=== PATIENT | male | born 1945 | race Caucasian/White ===

== ENCOUNTER 2016-05-09 15:45 | Inpatient (IN) | payer MEDICARE, OTHER ==
[~2016-05-09] VITALS: Ht 172.7 cm; Wt 76.2 kg
[2016-05-09 17:50] VITALS: BP 122/64
[2016-05-09] MEDS ORDERED: ALBU17IN INH (18:30)
[2016-05-09] MEDS ORDERED: AMLO5TAB2 PO (18:30)
[2016-05-09] MEDS ORDERED: OMEP40CA2 PO (18:30)
[2016-05-09] MEDS ORDERED: LISI-542 PO (18:30)
[2016-05-09] MEDS ORDERED: GABA-279 PO (18:30)
[2016-05-09] MEDS ORDERED: MONT10TA2 PO (18:30)
[2016-05-09] MEDS ORDERED: ASPI81TA7 PO (18:30)
[2016-05-09] MEDS ORDERED: ZOSY3INJ2 IV (18:30)
[2016-05-09] MEDS ORDERED: ACETAMINOPHEN TAB 650MG DOSE (2X325MG) PO PRN (19:00)
[2016-05-09] MEDS ORDERED: ONDANSETRON 4MG/2ML VIAL (J2405) IV PRN (19:00)
[2016-05-09] MEDS ORDERED: ALBUTEROL 90 MCG/ACT 8GM HFA INHALER INH PRN (19:15)
[2016-05-09] MEDS ORDERED: LORazepam 2 MG/ML VIAL (J2060) IV STA (19:20)
[2016-05-09 19:31] LABS: MEAN CORPUSCULAR HEMOGLOBIN 28.8 pg (27.0-33.0); MEAN CORPUSCULAR HGB CONC 33.7 g/dl (32.0-36.5); MEAN CORPUSCULAR VOLUME 85.3 fl (80.0-96.0); RED CELL DISTRIBUTION WIDTH 13.4 % (11.5-14.5); WHITE BLOOD COUNT 12.2 K/mm3 (4.0-10.0)
--- NOTE | 2016-05-09 19:34 | HPEPDOC ---
Medical History and Physical Date of Admission May 09, 2016 at 17:45 History and Physical PRIMARY CARE PROVIDER: ATTENDING: Mat Blue MD CHIEF COMPLAINT: Abd pain/N/V HISTORY OF PRESENT ILLNESS: Is a 70-year-old male past medical history of asthma, GERD, history of small bowel obstruction, spinal stenosis, hypertension initially presents to [facility] complaining of nausea/vomiting/abdominal pain. Patient states he started to develop nausea and nonbilious nonbloody vomiting over the past 24 hours. Complained of epigastric pain that was nonradiating. Denied any chest pain/redness of breath/palpitations. No diarrhea. Had a regular bowel movement today. N/V/Abd pain have completely resolved. At [facility], patient was noted to have the WBC of 18, bilirubin of 3.5, AST/ALT/alkaline phosphatase in the 100s, and reported to have a dilation of the common bile duct per the ED physician at [facility]. She was sent here for a formal GI evaluation for choledocholithiasis. PAST MEDICAL HISTORY: As per HPI PAST SURGICAL HISTORY: Hemorrhoidectomy, knee surgery, rotator cuff surgery FAMILY HISTORY: Noncontributory ALLERGIES: Please see below. REVIEW OF SYSTEMS: HEENT: Denies sore throat/headache CARDIOVASCULAR: Denies chest pain/palpitations RESPIRATORY: No shortness of breath/cough GASTROINTESTINAL: + nausea/vomiting GENITOURINARY: Denies dysuria/urinary urgency. MUSCULOSKELETAL: Denies myalgias/arthralgias NEUROLOGICAL: Denies any focal weakness Rest of ROS negative. HOME MEDICATIONS: Please see below. PHYSICAL EXAMINATION: Vitals: (see below) General: No acute distress, laying comfortably in bed. HEENT: Moist mucous membranes. Neck: No JVD or lymphadenopathy Cardiac: RRR, No murmurs Pulm: Clear to auscultation b/l. No wheezing, rhonchi Abd: NT/ND + BS Ext: No edema or cyanosis LABORATORY DATA: See below. IMAGING: CT abdomen and pelvis 05/09/16 from [facility] is being sent to radiology for formal reading. I do not have the readings from [place]. I was told by the ED physician that there was no localized gallstone within the common bile duct although it is dilated. MRCP pending MICROBIOLOGY: Please see below. ASSESSMENT/PLAN: Questionable choledocholithiasis versus cholecystitis- given that the bilirubin is elevated and since, and bile duct was reported to be dilated, will obtain MRCP. Trend LFTs. Gastroenterology consultation. Dr. Figueroa will be evaluating patient tomorrow. Patient was initially hypotensive on presentation to [facility], status post 2 L normal saline currently on maintenance fluids. Continue Zosyn and follow blood cultures. History of hypertension- hold BP meds for now as patient was hypotensive in the 80s at [facility]. Consider restarting when blood pressure stabilizes. GERD- PPI H/o Asthma H/o spinal stenosis GERD - on PPI DVT prophy: SCDs Pt will be followed by Dr. Meyer starting 05/10/16 at 7am. Vital Signs Vital Signs Date Time Temp Pulse Resp B/P Pulse Ox O2 Delivery O2 Flow Rate FiO2 05/09/16 17:50 97.1 74 20 122/64 96 Room Air Home Medications Scheduled Amlodipine Besylate (Amlodipine Besylate) 5 Mg Tab 5 MG PO QHS Aspirin (Aspirin) 81 Mg Tab 81 MG PO QHS Ciprofloxacin HCl (Cipro) 500 Mg Tab 500 MG PO BID Gabapentin (Gabapentin) 100 Mg Cap 100 MG PO QHS Lisinopril (Lisinopril) 5 Mg Tab 5 MG PO QHS Montelukast Sodium (Montelukast Sodium) 10 Mg Tab 10 MG PO QHS Omeprazole (Omeprazole) 40 Mg Cap 40 MG PO DAILY Scheduled PRN Acetaminophen/Hydrocodone ([place] 5-325 mg) 1 Tab Tab 1 TAB PO Q6HP PRN PRN pain Albuterol Sulfate (Ventolin Hfa) 200 Puff/8 Gm Aers 2 PUFF INH QID PRN PRN SHORTNESS OF BREATH Allergies Coded Allergies: No Known Drug Allergy (Verified Allergy, Unknown, 05/09/16) MAT BLEU MD May 09, 2016 19:34
[2016-05-09 19:54] LABS: ALBUMIN 2.9 GM/DL (3.2-5.2); ALBUMIN/GLOBULIN RATIO 1.07 (1.00-1.93); ALKALINE PHOSPHATASE 162 U/L (45-117); ALT/SGPT 121 U/L (12-78); ANION GAP 8 MEQ/L (8-16); AST/SGOT 122 U/L (15-37); BILIRUBIN,TOTAL 3.7 MG/DL (0.2-1.0); BLOOD UREA NITROGEN 15 MG/DL (7-18); CALCIUM LEVEL 7.8 MG/DL (8.8-10.2); CARBON DIOXIDE LEVEL 25 MEQ/L (21-32); CHLORIDE LEVEL 108 MEQ/L (98-107); GLOMERULAR FILTRATION RATE > 60.0 (>42); GLUCOSE, FASTING 91 MG/DL (83-110); SODIUM LEVEL 141 MEQ/L (136-145); TOTAL PROTEIN 5.6 GM/DL (6.4-8.2)
[2016-05-09 20:00] VITALS: PULSE 68
[2016-05-09 20:50] VITALS: BP 118/72
[2016-05-09] MEDS: PIPERACILLIN/TAZOBACTAM SOD 3.375 GM in D5W MINI-BAG PLUS 50 ML IV SCH (21:31)
[2016-05-09] MEDS: MONTELUKAST 10 MG TAB PO SCH (21:31)
[2016-05-09] MEDS: GABAPENTIN 100 MG CAP PO SCH (21:31)
[2016-05-09] MEDS: ASPIRIN 81 MG ENTERIC TAB PO SCH (21:31)
[2016-05-09] MEDS: NS 1,000 ML IV SCH (21:32)
--- NOTE | 2016-05-09 22:50 | REPUSA ---
HISTORY: Nausea and vomiting TECHNIQUE: MR abdomen without contrast, and MRCP. Coronal True FISP, HASTE. Axial HASTE, T1 out/in, a nd T1 VIBE. Thick slab MRCP was performed. COMPARISON: No pertinent prior studies are available at this time. MR ABDOMEN WITHOUT CONTRAST: Lung bases: No effusion. Liver: No intrahepatic ductal dilation. Gallbladder: Distended, with wall edema consistent with cholecystitis. Pancreas: No pancreatic duct dilation. Spleen: Normal size. Adrenals: Normal size. Kidneys: No hydronephrosis. 3.7 cm left renal cyst of the lower pole. Aorta: Normal caliber. Bowel loops: Limited evaluation on MRI. Peritoneum: No ascites. MRCP: There are multiple filling defect within the common bile duct representing approximately 3 to 4 gallstones measuring up to 5 mm diameter, producing obstruction. Pancreatic duct is mildly prominent at 4 mm. IMPRESSION: Findings consistent with acute cholecystitis, with 3 to 4 obstructing gallstones within the common bi le duct to the level of the duodenal ampulla. Findings were called to the floor and hospitalist.
[2016-05-10] VITALS (12 sets, daily range): BP systolic 110–143; BP diastolic 63–96; PULSE 68–71
[2016-05-10] MEDS: PIPERACILLIN/TAZOBACTAM SOD 3.375 GM in D5W MINI-BAG PLUS 50 ML IV SCH ×4 (03:03→20:05)
[2016-05-10 05:55] LABS: ALBUMIN 2.6 GM/DL (3.2-5.2); ALBUMIN/GLOBULIN RATIO 0.81 (1.00-1.93); ALKALINE PHOSPHATASE 134 U/L (45-117); ALT/SGPT 104 U/L (12-78); AST/SGOT 95 U/L (15-37); BILIRUBIN,TOTAL 3.3 MG/DL (0.2-1.0); BLOOD UREA NITROGEN 14 MG/DL (7-18); CALCIUM LEVEL 7.8 MG/DL (8.8-10.2); CREATININE FOR GFR 0.78 MG/DL (0.70-1.30); GLOMERULAR FILTRATION RATE > 60.0 (>42); GLUCOSE, FASTING 87 MG/DL (83-110); TOTAL PROTEIN 5.8 GM/DL (6.4-8.2)
[2016-05-10 05:58] LABS: MEAN CORPUSCULAR HEMOGLOBIN 28.7 pg (27.0-33.0); MEAN CORPUSCULAR HGB CONC 33.2 g/dl (32.0-36.5); MEAN CORPUSCULAR VOLUME 86.5 fl (80.0-96.0); RED CELL DISTRIBUTION WIDTH 13.9 % (11.5-14.5); WHITE BLOOD COUNT 7.8 K/mm3 (4.0-10.0)
[2016-05-10] MEDS: NS 1,000 ML IV SCH ×2 (06:04→09:15)
[2016-05-10] MEDS: PANTOPRAZOLE 40MG INJ (PROTONIX) (C9113) IV SCH (09:14)
[2016-05-10 10:52] LABS: ANION GAP 10 MEQ/L (8-16); BLOOD UREA NITROGEN 13 MG/DL (7-18); CALCIUM LEVEL 8.6 MG/DL (8.8-10.2); CARBON DIOXIDE LEVEL 22 MEQ/L (21-32); CHLORIDE LEVEL 107 MEQ/L (98-107); CREATININE FOR GFR 0.77 MG/DL (0.70-1.30); GLOMERULAR FILTRATION RATE > 60.0 (>42); GLUCOSE, FASTING 96 MG/DL (83-110); POTASSIUM SERUM 3.7 MEQ/L (3.5-5.1); SODIUM LEVEL 139 MEQ/L (136-145)
[2016-05-10 11:33] LABS: SODIUM LEVEL 143 MEQ/L (136-145)
[2016-05-10 11:34] LABS: CARBON DIOXIDE LEVEL 26 MEQ/L (21-32)
[2016-05-10 11:35] LABS: ANION GAP 9 MEQ/L (8-16); CHLORIDE LEVEL 108 MEQ/L (98-107)
--- NOTE | 2016-05-10 12:16 | IPN ---
DATE: 05/10/2016 SUBJECTIVE: Today, the patient tells me that he is feeling better. He is still having some abdominal pain, but no further nausea or vomiting. It is significantly improved from previous days. Denies chest pain, shortness of breath, fevers or chills at the present time, although he was having chills prior to presenting to the hospital yesterday. OBJECTIVE: VITAL SIGNS: Temperature 96.3, pulse 73, respiratory rate 18, blood pressure 110/63, oxygen saturation 95% on room air. GENERAL: He is a disheveled elderly man laying flat in bed. He does not appear to be in any acute distress. HEENT: He is hard of hearing. He has poor dentition. Moist mucous membranes. No elevation of central venous pressure (CVP). CARDIOVASCULAR: S1, S2, regular. RESPIRATORY: Clear. ABDOMINAL EXAM: Bowel sounds are present. The abdomen is soft. There is mild tenderness to palpation of the right upper quadrant, but only deep palpation. EXTREMITIES: No clubbing, cyanosis or edema. LABORATORY STUDIES: WBC 7.8 down from 12.2. Hemoglobin 12.2, hematocrit 36.7 and platelet count 153. Chemistry panel: Sodium 139, potassium 3.7, chloride 107, bicarbonate 22, BUN 13, creatinine 0.7, AST 95 down from 122, ALT 104 down from 121, alkaline phosphatase 134 down from 162. Lipase within normal limits. Blood cultures are pending. IMAGING: The patient did have a MRCP which revealed acute cholecystitis with 3-4 obstructing gallstones within the common bile duct to the level of the duodenal ampulla. ASSESSMENT AND PLAN: This is a 70-year-old man with acute cholecystitis and choledocholithiasis. PROBLEMS: 1. Choledocholithiasis and cholecystitis. I have spoken with Dr. Figueroa this morning. The patient is on the schedule for an ERCP today. He is nothing by mouth (n.p.o.). His pain is improving. He may have spontaneously blocked some obstructing stones, however, given the number of his stones and he has some residual pain, I think he would greatly benefit from ERCP and stone removal and would likely benefit from cholecystectomy down the road. The patient was initially hypotensive, but responded to IV fluids at [facility]. At the present time, he is on maintenance fluids as well as on Zosyn and improving. 2. Hypertension. His home blood pressure medications are held secondary to hypotension. 3. Gastroesophageal reflux disease. He is on a proton pump inhibitor (PPI). 4. Seasonal allergies. The patient is on Singulair. 5. Chronic pain. The patient is on Neurontin. 6. Asthma. The patient is on Ventolin as needed. 7. Deep vein thrombosis (DVT) prophylaxis. Sequentials and thromboembolic deterrent stockings (TEDS), early ambulation. If the patient remains in hospital, consider starting pharmacological agents.
[2016-05-10] MEDS ORDERED: ISOVUE-300 61% 50ML VIAL (Q9967) As Ordered ONE ×2 (14:21→17:47)
[2016-05-10] MEDS ORDERED: ISOVUE-300 61% 50ML VIAL (Q9967) XX ONE (16:33)
[2016-05-10] MEDS ORDERED: LIDOCAINE 2% INJ 100 MG/5 ML SDV (FOR ANES.) As Ordered ONE (17:05)
[2016-05-10] MEDS ORDERED: PROPOFOL 200 MG/20 ML VIAL As Ordered ONE (17:05)
[2016-05-10] MEDS ORDERED: fentaNYL 100 MCG/2 ML INJECTION (J3010) As Ordered ONE (17:05)
[2016-05-10] MEDS ORDERED: ONDANSETRON 4MG/2ML VIAL (J2405) As Ordered ONE (17:05)
[2016-05-10] MEDS ORDERED: GLYCOPYRROLATE INJ 0.2 MG/ML 2 ML VIAL As Ordered ONE ×2 (17:05→17:06)
[2016-05-10] MEDS ORDERED: NEOSTIGMINE 1MG/ML 5 ML SYRINGE (J2710) As Ordered ONE (17:05)
[2016-05-10] MEDS ORDERED: MIDAZOLAM INJ 2 MG/2 ML VIAL (J2250) As Ordered ONE (17:05)
[2016-05-10] MEDS ORDERED: METOCLOPRAMIDE INJ 10MG/2ML VIAL (J2765) As Ordered ONE (17:05)
[2016-05-10] MEDS ORDERED: PHENYLephrine HCL 500 MCG/5 ML (100MCG/ML) SYRINGE (J2370) As Ordered ONE (17:05)
[2016-05-10] MEDS ORDERED: ROCURONIUM BROMIDE 50 MG/5 ML VIAL As Ordered ONE (17:06)
[2016-05-10] MEDS ORDERED: INDOMETHACIN 50 MG SUPPOSITORY (INDOCIN) As Ordered ONE (17:59)
[2016-05-10] MEDS ORDERED: fentaNYL 100 MCG/2 ML INJECTION (J3010) IV PRN (18:30)
[2016-05-10] MEDS ORDERED: ONDANSETRON 4MG/2ML VIAL (J2405) IV PRN (18:30)
[2016-05-10] MEDS ORDERED: LR 1,000 ML IV SCH (18:30)
--- NOTE | 2016-05-10 18:35 | ROOR ---
Patient Name: Cedric Riojas Procedure Date: 05/10/2016 5:02 PM Date of : 1945 Age: 70 Room: Main OR Gender: Male Note Status: Finalized Procedure: ERCP + Papillotomy + Balloon Sweep Indications: Abdominal pain of suspected biliary origin, Abnormal MRCP, Evaluation and possible treatment of bile duct stone(s), Bile duct stone(s), Elevated liver enzymes Providers: Freeman Figueroa MD Referring MD: 2. Inpatient 2. Inpatient Requesting Provider: Medicines: General Anesthesia Complications: No immediate complications. Procedure: Pre-Anesthesia Assessment: - The heart rate, respiratory rate, oxygen saturations, blood pressure, adequacy of pulmonary ventilation, and response to care were monitored throughout the procedure. The Duodenoscope was introduced through the mouth, and advanced to the duodenum and used to inject contrast into the bile duct. The ERCP was accomplished without difficulty. The patient tolerated the procedure well. Findings: The upper GI tract was traversed under direct vision without detailed examination. The major papilla was normal. The bile duct was deeply cannulated with the short-nosed traction sphincterotome. Contrast was injected. I personally interpreted the bile duct images. Ductal flow of contrast was adequate. Image quality was adequate. Contrast extended to the entire biliary tree. The main bile duct contained multiple stones mm. A short 0.035 inch Soft Jagwire was passed into the biliary tree. Biliary sphincterotomy was made with a monofilament traction (standard) sphincterotome using ERBE electrocautery. There was no post-sphincterotomy bleeding. The biliary tree was swept with a 12 mm balloon starting at the bifurcation. Sludge was swept from the duct. All stones were removed. Indomethacin 100 mg was given via suppository to decrease the risk of post-ERCP pancreatitis (PEP). The ventral pancreatic duct was deeply cannulated with the short-nosed traction sphincterotome. Contrast was injected. Opacification of the pancreatic duct in the head and body of the pancreas was done. The entire opacified area was normal. Impression: - Choledocholithiasis was found. Complete removal was accomplished by biliary sphincterotomy and balloon extraction. - A biliary sphincterotomy was performed. - The biliary tree was swept and sludge was found. - Indomethacin given to decrease risk of post-ERCP pancreatitis. Recommendation: - Return patient to [facility] for [facility] care. - Watch for pancreatitis, bleeding, perforation, and cholangitis. - The findings and recommendations were discussed with the patient's family. - The findings and recommendations were discussed with the referring physician. Freeman Figueroa MD Freeman Figueroa MD 05/10/2016 6:35:10 PM This report has been signed electronically. Number of Addenda: 0 Note Initiated On: 05/10/2016 5:02 PM Estimated Blood Loss: Estimated blood loss: none.
--- NOTE | 2016-05-10 18:50 | REP ---
Clinical: Choledocholithiasis. Acute cholecystitis. Technique: Intraoperative fluoroscopic images from ERCP. Findings: Multiple intraoperative fluoroscopic images demonstrate status post removal of ductal stones. Total fluoroscopic time 3 minutes 47 seconds. Impression: Status post biliary ductal stone removal. Signed by Sanjay Lisa MD 05/10/2016 06:42 P
[2016-05-10] MEDS: ASPIRIN 81 MG ENTERIC TAB PO SCH (20:05)
[2016-05-10] MEDS: GABAPENTIN 100 MG CAP PO SCH (20:05)
[2016-05-10] MEDS: MONTELUKAST 10 MG TAB PO SCH (20:05)
[2016-05-11] VITALS (7 sets, daily range): BP systolic 104–140; BP diastolic 61–88
[2016-05-11] MEDS: NS 1,000 ML IV SCH (01:12)
[2016-05-11] MEDS: PIPERACILLIN/TAZOBACTAM SOD 3.375 GM in D5W MINI-BAG PLUS 50 ML IV SCH ×4 (01:12→20:17)
[2016-05-11 05:55] LABS: MEAN CORPUSCULAR HEMOGLOBIN 28.4 pg (27.0-33.0); MEAN CORPUSCULAR HGB CONC 32.7 g/dl (32.0-36.5); MEAN CORPUSCULAR VOLUME 86.8 fl (80.0-96.0); RED CELL DISTRIBUTION WIDTH 13.9 % (11.5-14.5)
[2016-05-11 06:11] LABS: ALBUMIN 2.5 GM/DL (3.2-5.2); ALBUMIN/GLOBULIN RATIO 0.78 (1.00-1.93); ALKALINE PHOSPHATASE 133 U/L (45-117); ALT/SGPT 93 U/L (12-78); ANION GAP 11 MEQ/L (8-16); AST/SGOT 79 U/L (15-37); BILIRUBIN,TOTAL 2.1 MG/DL (0.2-1.0); BLOOD UREA NITROGEN 13 MG/DL (7-18); CALCIUM LEVEL 7.9 MG/DL (8.8-10.2); CARBON DIOXIDE LEVEL 22 MEQ/L (21-32); CHLORIDE LEVEL 109 MEQ/L (98-107); CREATININE FOR GFR 0.71 MG/DL (0.70-1.30); GLOMERULAR FILTRATION RATE > 60.0 (>42); GLUCOSE, FASTING 71 MG/DL (83-110); POTASSIUM SERUM 3.8 MEQ/L (3.5-5.1); SODIUM LEVEL 142 MEQ/L (136-145); TOTAL PROTEIN 5.7 GM/DL (6.4-8.2)
[2016-05-11] MEDS: PANTOPRAZOLE 40MG INJ (PROTONIX) (C9113) IV SCH (09:53)
--- NOTE | 2016-05-11 17:33 | IPN ---
DATE: 05/11/2016 Patient is seen and examined. No acute events overnight. Status post ERCP. Patient currently comfortable. Tolerating oral. Denies any fevers, chills, chest pain, pressure, or discomfort. Denies any abdominal pain. VITAL SIGNS: Temperature 96.4, pulse 69, respirations 22, blood pressure 124/69, pulse oximetry 97% on room air. LABORATORY DATA: WBC 5, hemoglobin and hematocrit 11.4/34.9, platelets 153. Chemistry: Sodium 142, potassium 3.8, chloride 109, bicarbonate 22, BUN 13, creatinine 0.71. PHYSICAL EXAMINATION: GENERAL: Patient alert and oriented times three, in no acute distress. HEENT: Normocephalic, atraumatic. Moist mucous membranes. CARDIAC: Regular rate and rhythm, normal S1, S2. PULMONARY: Bilaterally clear. ABDOMEN: Soft, nontender, positive bowel sounds. EXTREMITIES: No clubbing, cyanosis, or edema. ASSESSMENT AND PLAN: This is a 70-year-old male patient with underlying medical history of asthma, gastroesophageal reflux disease (GERD), history of small bowel obstruction, spinal stenosis, hypertension, transferred from [facility] with nausea, vomiting, abdominal pain, diagnosed with choledocholithiasis. 1. Choledocholithiasis and possible acute cholecystitis, status post ERCP by Dr. Figueroa. Currently tolerating diet with no significant complaint. Intravenous (IV) hydration initially given. Patient initially on Zosyn. MRCP appreciated. ERCP was done with removal of the stone. Dr. Figueroa requested surgical consultation, subsequently Dr. Holguni was consulted. Followup surgery recommendations. 2. Hypertension. Patient's blood pressure has been stable. We are still withholding blood pressure medications due to hypotension initially, will consider restarting as patient tolerates. 3. Gastroesophageal reflux disease (GERD). Continue proton pump inhibitor (PPI). 4. Transaminitis, secondary to choledocholithiasis, possible cholecystitis. Will continue to follow. Intravenous (IV) hydration given. 5. Seasonal allergies. Continue Singulair. 6. Chronic pain. Continue Neurontin. 7. Asthma. Continue home medication. 8. Deep venous thrombosis (DVT) prophylaxis. Will place the patient on heparin subcutaneous. DISPOSITION: Pending surgical consultation.
[2016-05-11] MEDS: MONTELUKAST 10 MG TAB PO SCH (20:18)
[2016-05-11] MEDS: ASPIRIN 81 MG ENTERIC TAB PO SCH (20:18)
[2016-05-11] MEDS: GABAPENTIN 100 MG CAP PO SCH (20:18)
[2016-05-11] MEDS: HEPARIN SOD (PORCINE) 5000 UNITS/ML VIAL SQ SCH (20:18)
[2016-05-12] VITALS (10 sets, daily range): BP systolic 115–172; BP diastolic 63–102
[2016-05-12] MEDS: PIPERACILLIN/TAZOBACTAM SOD 3.375 GM in D5W MINI-BAG PLUS 50 ML IV SCH ×4 (01:36→20:19)
--- NOTE | 2016-05-12 04:16 | CR ---
DATE OF CONSULTATION: 05/11/2016 PRINCIPAL DIAGNOSIS: Common bile duct stones with obstructive jaundice. BRIEF HISTORY OF PRESENT ILLNESS: The patient is a 70-year-old male who presents with an episode of acute onset of abdominal distention, nausea and vomiting over the last week prior to admission, essentially went to the emergency room at [facility], had an elevated white count of 18,000 with elevated liver function tests. No evidence of gallstone pancreatitis at that time. He also has an interesting history where he has had two previous episodes of significant epigastric pain radiating all across his upper abdomen thought they were trauma related, but in retrospect feels as though they were very similar to this episode of choledocholithiasis. In any case, presented with this finding, underwent treatment for with IV antibiotics and then underwent an ERCP with a sphincterotomy and had the bile ducts cleared. Since that time, he has not had any additional pain and his white count has been normal for a few days. He is having no fevers or chills. PAST MEDICAL HISTORY: Significant for history of asthma, history of GE reflux, history of small bowel obstruction, history of spinal stenosis, history of hypertension, history of hemorrhoidectomy, knee surgery and rotator cuff surgery. MEDICATIONS: Include amlodipine, aspirin, gabapentin, lisinopril, montelukast, sodium, omeprazole and as needed albuterol. PHYSICAL EXAMINATION: Reveals a 70-year-old male who looks stated age. HEENT: Reveals an atraumatic, normocephalic head with extraocular movements intact. Pupils are equal and reactive to light. Sclerae nonicteric. Oropharynx is clear without exudate or lesions. Neck is supple without adenopathy. Lungs are clear to auscultation without crackles, wheezes, or rhonchi. Heart is regular without murmur. Abdomen is soft, nondistended, nontender. No hepatosplenomegaly is appreciated. Extremities are warm and well-perfused. On his MRI that he had originally there was some edema around the gallbladder with some significant obstructive symptoms and I anticipate the pericholecystic fluid that was appreciated on the initial study was not cholecystitis, but secondary from his obstructive picture. IMPRESSION AND PLAN: The patient had choledocholithiasis and at this point is treated with ERCP with papillotomy. Overall, seems to have decompressed quite nicely and is no longer obstructed, tolerating a regular diet at this point. His options are several, either one of which he can stay in the hospital and undergo laparoscopic cholecystectomy as a semi-elective/urgent case later on this week, or see me in followup in a week or two and then we will schedule an outpatient laparoscopic cholecystectomy. At this point, given his history of an infectious presentation, I do feel that it is reasonable to keep him on the antibiotics for now and will talk to him in the morning and will ask him what he would like to do. I would prefer that his LFTs return to normal levels prior to operative intervention which to me suggests that there probably is some liver congestion still present with elevated LFTs and may even be some resolving common bile duct/cystic duct distention as well. I will discuss further plans with him in the morning.
[2016-05-12 06:52] LABS: MEAN CORPUSCULAR HEMOGLOBIN 28.8 pg (27.0-33.0); MEAN CORPUSCULAR HGB CONC 33.4 g/dl (32.0-36.5); MEAN CORPUSCULAR VOLUME 86.3 fl (80.0-96.0); RED CELL DISTRIBUTION WIDTH 14.1 % (11.5-14.5); WHITE BLOOD COUNT 4.2 K/mm3 (4.0-10.0)
[2016-05-12 06:57] LABS: ALBUMIN 2.6 GM/DL (3.2-5.2); ALBUMIN/GLOBULIN RATIO 0.76 (1.00-1.93); ALKALINE PHOSPHATASE 150 U/L (45-117); ALT/SGPT 100 U/L (12-78); ANION GAP 8 MEQ/L (8-16); AST/SGOT 76 U/L (15-37); BILIRUBIN,TOTAL 1.2 MG/DL (0.2-1.0); BLOOD UREA NITROGEN 9 MG/DL (7-18); CALCIUM LEVEL 8.5 MG/DL (8.8-10.2); CARBON DIOXIDE LEVEL 25 MEQ/L (21-32); CHLORIDE LEVEL 111 MEQ/L (98-107); CREATININE FOR GFR 0.73 MG/DL (0.70-1.30); GLOMERULAR FILTRATION RATE > 60.0 (>42); GLUCOSE, FASTING 94 MG/DL (83-110); POTASSIUM SERUM 3.8 MEQ/L (3.5-5.1); SODIUM LEVEL 144 MEQ/L (136-145)
[2016-05-12] MEDS: HEPARIN SOD (PORCINE) 5000 UNITS/ML VIAL SQ SCH ×2 (08:52→20:18)
[2016-05-12] MEDS: PANTOPRAZOLE 40MG TAB (PROTONIX) PO SCH (08:52)
[2016-05-12] MEDS: LR 1,000 ML IV SCH (11:37)
--- NOTE | 2016-05-12 11:58 | IPN ---
DATE OF SERVICE: 05/12/2016 Patient seen and examined. No acute events overnight. Denies any chest pain, pressure or discomfort. Denies any abdominal pain. Was tolerating oral last night, currently nothing by mouth. VITAL SIGNS: Temperature 96.8, pulse 59, respirations 18, blood pressure 143/82, pulse oximetry 94% on room air. LABORATORIES: WBC 4.2, hemoglobin and hematocrit 12.5/37.3, platelets 189. Chemistries - sodium 144, potassium 3.8, chloride 111, bicarb 25, BUN 9, creatinine 0.73. PHYSICAL EXAMINATION: Patient alert, oriented times three, in no acute distress. HEENT: Normocephalic, atraumatic. Moist mucous membranes. CARDIAC: Regular rate and rhythm. Normal S1 and S2. ABDOMEN: Soft, nontender. Positive bowel sounds. PULMONARY: Bilaterally clear to auscultation. EXTREMITIES: No clubbing, cyanosis, or edema. ASSESSMENT/PLAN: This is a 70-year-old male patient with underlying medical history of asthma, gastroesophageal reflux disease (GERD), history of small bowel obstruction, spinal stenosis, hypertension, transferred from [facility] with nausea, vomiting and abdominal pain diagnosed with choledocholithiasis. PROBLEMS: 1. Choledocholithiasis and possible acute cholecystitis. Status post ERCP by Dr. Figueroa. Tolerating diet. No new complaints. Patient on Zosyn. Initially MRCP was done. ERCP done with stone removal. Surgery consulted. Dr. Holguin has been consulted. Patient nothing by mouth for cholecystectomy later today. Followup surgery for further recommendation. IV maintenance fluids ordered given the patient is nothing by mouth. 2. Hypertension. Blood pressure currently stable. Will withhold blood pressure medications given the patient is normotensive and going in for surgery. Restarting diet as tolerated. 3. Gastroesophageal reflux disease (GERD). Continue proton pump inhibitor (PPI). 4. Transaminitis secondary to choledocholithiasis, possible cholecystitis. Continue to follow. IV hydration initially provided. 5. Seasonal allergies. Continue Singulair. 6. Chronic pain. Continue Neurontin. 7. Asthma. Continue home medication. 8. Deep vein thrombosis (DVT) prophylaxis. Heparin subcu. DISPOSITION PLANNING: Patient with METS greater than 4. Low risk for intermediate risk procedure. Patient is currently medically optimized for surgery. Disposition pending surgery.
[2016-05-12] MEDS ORDERED: BUPIVACAINE/EPIN 0.25% 30 ML VIAL As Ordered ONE (14:12)
[2016-05-12] MEDS ORDERED: MIDAZOLAM INJ 2 MG/2 ML VIAL (J2250) As Ordered ONE (14:26)
[2016-05-12] MEDS ORDERED: fentaNYL 100 MCG/2 ML INJECTION (J3010) As Ordered ONE ×3 (14:27→16:09)
[2016-05-12] MEDS ORDERED: LIDOCAINE 2% INJ 100 MG/5 ML SDV (FOR ANES.) As Ordered ONE (14:28)
[2016-05-12] MEDS ORDERED: PROPOFOL 200 MG/20 ML VIAL As Ordered ONE (14:29)
[2016-05-12] MEDS ORDERED: ROCURONIUM BROMIDE 50 MG/5 ML VIAL As Ordered ONE (14:31)
[2016-05-12] MEDS ORDERED: BUPIVACAINE/EPIN 0.25% 30 ML VIAL XX ONE (15:02)
[2016-05-12] MEDS ORDERED: dexameTHASONE 4 MG/ML 1ML VIAL (J1100) As Ordered ONE (15:10)
[2016-05-12] MEDS ORDERED: KETOROLAC 60 MG/2 ML VIAL (J1885) As Ordered ONE (15:20)
[2016-05-12] MEDS ORDERED: NEOSTIGMINE 1MG/ML 5 ML SYRINGE (J2710) As Ordered ONE (15:21)
[2016-05-12] MEDS ORDERED: ONDANSETRON 4MG/2ML VIAL (J2405) As Ordered ONE (15:21)
[2016-05-12] MEDS ORDERED: GLYCOPYRROLATE INJ 0.2 MG/ML 2 ML VIAL As Ordered ONE (15:21)
[2016-05-12] MEDS ORDERED: ONDANSETRON 4MG/2ML VIAL (J2405) IV PRN (16:15)
[2016-05-12] MEDS ORDERED: LR 1,000 ML IV SCH (16:15)
[2016-05-12] MEDS ORDERED: MORPHINE 2 MG/ML 1ML SYRINGE IV PRN (16:15)
[2016-05-12] MEDS: fentaNYL 100 MCG/2 ML INJECTION (J3010) IV PRN ×4 (16:20→17:15)
[2016-05-12] MEDS: NORCO, ANEXSIA 5/325MG TABLET (HYDROcodone/ACETAMINOPHEN) PO PRN (17:54)
[2016-05-12] MEDS: GABAPENTIN 100 MG CAP PO SCH (20:18)
[2016-05-12] MEDS: ASPIRIN 81 MG ENTERIC TAB PO SCH (20:18)
[2016-05-12] MEDS: MONTELUKAST 10 MG TAB PO SCH (20:18)
[2016-05-13 02:00] VITALS: BP 115/56
[2016-05-13] MEDS: PIPERACILLIN/TAZOBACTAM SOD 3.375 GM in D5W MINI-BAG PLUS 50 ML IV SCH ×2 (02:28→08:42)
[2016-05-13] MEDS: LR 1,000 ML IV SCH (02:28)
[2016-05-13] MEDS: NORCO, ANEXSIA 5/325MG TABLET (HYDROcodone/ACETAMINOPHEN) PO PRN ×3 (02:29→12:41)
[2016-05-13 06:00] VITALS: BP 131/77
[2016-05-13 06:56] LABS: MEAN CORPUSCULAR HEMOGLOBIN 28.8 pg (27.0-33.0); MEAN CORPUSCULAR HGB CONC 33.3 g/dl (32.0-36.5); MEAN CORPUSCULAR VOLUME 86.5 fl (80.0-96.0); WHITE BLOOD COUNT 11.5 K/mm3 (4.0-10.0)
[2016-05-13 07:08] LABS: ALBUMIN 2.8 GM/DL (3.2-5.2); ALKALINE PHOSPHATASE 143 U/L (45-117); ALT/SGPT 104 U/L (12-78); ANION GAP 9 MEQ/L (8-16); AST/SGOT 73 U/L (15-37); BILIRUBIN,TOTAL 1.5 MG/DL (0.2-1.0); BLOOD UREA NITROGEN 7 MG/DL (7-18); CALCIUM LEVEL 8.6 MG/DL (8.8-10.2); CARBON DIOXIDE LEVEL 27 MEQ/L (21-32); CHLORIDE LEVEL 106 MEQ/L (98-107); CREATININE FOR GFR 0.64 MG/DL (0.70-1.30); GLOMERULAR FILTRATION RATE > 60.0 (>42); GLUCOSE, FASTING 104 MG/DL (83-110); POTASSIUM SERUM 3.8 MEQ/L (3.5-5.1); SODIUM LEVEL 142 MEQ/L (136-145); TOTAL PROTEIN 6.3 GM/DL (6.4-8.2)
[2016-05-13] MEDS: PANTOPRAZOLE 40MG TAB (PROTONIX) PO SCH (08:43)
[2016-05-13] MEDS: HEPARIN SOD (PORCINE) 5000 UNITS/ML VIAL SQ SCH (08:43)
[2016-05-13 10:00] VITALS: BP 125/83
--- NOTE | 2016-05-13 10:37 | RO ---
DATE OF PROCEDURE: 05/12/2016 PREOPERATIVE DIAGNOSIS: Choledocholithiasis with acute cholecystitis. POSTOPERATIVE DIAGNOSIS: Choledocholithiasis with acute cholecystitis. PROCEDURE: Laparoscopic cholecystectomy. SURGEON: Dr. Feldman PAINT LINE SUPERVISOR: Dr. Gonzalez ANESTHESIA: General. ESTIMATED BLOOD LOSS (EBL): 5. COMPLICATION: None. INDICATION FOR PROCEDURE: The patient is a 70-year-old male who presents to [facility], was diagnosed with choledocholithiasis, was transferred here over the weekend for an endoscopic retrograde cholangiopancreatography (ERCP). He had the ERCP completed on Tuesday. Postprocedure he was doing well. Pain went away. White count returned to normal and liver function tests (LFTs) returned back almost to baseline. Due to being far from home, he request to have the surgery done before he went home. Therefore, we discussed having completing the procedure today. Recommendation was to proceed with laparoscopic, possible open cholecystectomy. Risks and benefits of procedure not limited but including bleeding, infection, hernia formation, damage surrounding structures, need further surgery were discussed in detail with the patient. Informed consent was obtained and procedure was planned. DESCRIPTION OF PROCEDURE: The patient was brought back to operating room #3. After sufficient sedation. the abdomen sterilely prepped and draped. Next, a time out was done to confirm proper patient and proper procedure. Following that, a stab incision was made in left lower quadrant at Roberts's point. A Veress needle was inserted and the abdomen was insufflated to 50 mmHg. Next, a 5 mm infraumbilical incision was made. A 5 mm Optiview port was then used to gain access to the abdomen. Once the abdomen was entered, Veress needle site was examined. There was no signs of injury. Veress needle was then removed. A 10 mm port was placed subxiphoid. Two 5 mm ports in the upper quadrant. The fundus of gallbladder was grasped, elevated up towards the right shoulder. Cystic duct and cystic artery were both then clearly dissected using blunt dissection. Once they were both clearly identified, they were both doubly clipped and cut. Gallbladder was then removed from gallbladder fossa using electrocautery, taken out through the 10 mm port site with a 10 mm EndoCatch bag. The right upper quadrant was then irrigated. Electrocautery was used to help control hemostasis. The liver bed, abdomen was then desufflated. Skin incision closed with #4-0 Vicryl subcuticular sutures. Abdomen was cleaned and dried. Steri-Strips, 4 x 4 and tape were applied, thus ending procedure.
[2016-05-13] MEDS ORDERED: CIPR500T89 PO (12:11)
[2016-05-13] MEDS ORDERED: NORC5TAB PO (13:04)
--- NOTE | 2016-05-14 09:28 | DSES ---
DATE OF ADMISSION: 05/09/2016 DATE OF DISCHARGE: 05/13/2016 MACHINE [employer] MAN: Dr. Figueroa GENERAL SURGEON: Dr. Feldman FINAL DIAGNOSES: 1. Choledocholithiasis, possible acute cholecystitis. 2. Hypertension. 3. Gastroesophageal reflux disease (GERD). 4. Transaminitis. 5. Seasonal allergy. 6. Chronic pain. 7. Asthma. HISTORY OF PRESENT ILLNESS: This is a 70-year-old male patient with underlying medical history of asthma, GERD, history of small bowel obstruction, spinal stenosis, hypertension, presented to the [facility] complaining of nausea, vomiting, abdominal pain. Patient started to have worsening nausea, nonbilious and nonbloody vomiting over 24 hours. Complained of epigastric pain that was non-radiating. Denies any chest pain, shortness of breath, palpitations, diarrhea. Had regular bowel movement. At [facility], patient was noted to have white blood cell (WBC) of 11, bilirubin of 3.5, AST, ALT, alkaline phosphatase elevations. Reported to have dilated common bile duct as per emergency department (ED) physician in [facility]. Was transferred to [facility] for evaluation of choledocholithiasis. HOSPITAL COURSE: Patient was admitted to the hospital. Gastroenterology, Dr. Figueroa, was consulted. Status post magnetic resonance cholangiopancreatography (MRCP), which shows questionable consistent with acute cholecystitis with 3-4 obstructing gallstone within the common bile duct to the level of duodenal ampulla. Subsequently endoscopic retrograde cholangiopancreatography (ERCP) was performed by Dr. Figueroa with stone removal and surgery was consulted. Laparoscopic acute cholecystectomy was performed. Antibiotic was given during the hospital course as well as IV fluids. Patient currently is tolerating oral with minimal surgical pain, ambulatory, ready for discharge for further care and followup as outpatient. VITAL SIGNS: Temperature 96.6, pulse 85, respiration 18, blood pressure 125/83, pulse oximetry 93% on room air. WBC 11.5, hemoglobin and hematocrit 12.8/38.3, platelets 205. Chemistry: Sodium 142, potassium 3.8, chloride 106, bicarbonate 27, BUN 7, creatinine 0.64. DISCHARGE MEDICATION: - [place] 5/325 mg by mouth every 6 hours as needed - ciprofloxacin 500 mg by mouth twice a day for [address] Figueroa - Ventolin inhalers four times a day as needed - Norvasc 5 mg by mouth nightly - aspirin 81 mg by mouth nightly - gabapentin 100 mg by mouth nightly - lisinopril 5 mg by mouth nightly - Singulair 10 mg by mouth nightly - Protonix 40 mg by mouth daily DISCHARGE INSTRUCTIONS: Patient is instructed to followup with gastroenterology and general surgery in 2 weeks, and primary care provider in 1 week. Return to the hospital if symptoms worsens. JAMILA
== END 2016-05-13 14:01 | disposition home or self-care (01) | DRG 419 ==
LOC: M PCU 17:45 → M MSPAV 05-11 18:45
PROVIDERS: ADMIT Internal Medicine; ATTEND Hospitalist
PROC: 0F7D8ZZ Dilation of Pancreatic Duct, Via Natural or Artificial Opening Endoscopic (ICD-10-PCS; 2016-05-09)
PROC: 0FC98ZZ Extirpation of Matter from Common Bile Duct, Via Natural or Artificial Opening Endoscopic (ICD-10-PCS; 2016-05-09)
PROC: 0FT44ZZ Resection of Gallbladder, Percutaneous Endoscopic Approach (ICD-10-PCS; principal; 2016-05-12 08:48)
DX: K80.62 Calculus of gallbladder and bile duct with acute cholecystitis without obstruction (principal); J45.909 Unspecified asthma, uncomplicated; K21.9 Gastro-esophageal reflux disease without esophagitis; I10 Essential (primary) hypertension; M48.00 Spinal stenosis, site unspecified; G89.29 Other chronic pain; Z79.82 Long term (current) use of aspirin; Z79.899 Other long term (current) drug therapy